=== PATIENT | male | born 1990 | race Caucasian/White ===

== ENCOUNTER 2017-07-11 14:06 | Emergency (ER) | payer SELFPAY ==
[2017-07-11] MEDS ORDERED: SUBLIMAZE IV ONE (15:19)
[2017-07-11] MEDS ORDERED: ZOFRAN IV ONE (15:19)
[2017-07-11] MEDS ORDERED: KEPPRA 1,000 MG/NS 0.75% 100ML 1,000 MG/100 ML BAG IV ONE (15:20)
--- NOTE | 2017-07-11 15:24 | Emergency Department Report ---
ED Seizure HPI - General Chief Complaint: Seizure Stated Complaint: CONVULSIONS/EYE LAC Time Seen by Provider: 07/11/17 15:19 Source: patient, EMS Mode of arrival: Stretcher Limitations: No Limitations - History of Present Illness Initial Comments: Patient is 27-year-old male with remote history of seizure and recently admitted to [facility] for suicidal ideation. Had patient brought to the ER for evaluation of this one single episode of seizure that happened while patient was standing at the nursing desk. A witness described a tonic clonic seizure with eyes rolling back. Patient was post ictal initially he received 2 mg of Ativan IM by EMS. Patient is awake alert oriented 3 now he stated that he had history of seizure before he was in [facility] for that but he recently saw a neurologist who did an EGD, MRI and he was told that he does not have seizure. Patient denied any headache, focal weakness numbness or tingling sensation. Patient is complaining of left shoulder pain and possible dislocation. Patient also sustained a left eyebrow laceration. Patient denied any fever, nausea or vomiting. MD Complaint: seizure -: Sudden Description of Episode: loss of consciousness, tonic-clonic movement, post- event confusion Witnessed:: Yes Trauma: Yes (left shoulder, left eyebrow laceration) Seizure History: known seizure disorder Place: other (psychiatric facility) Possible Precipitating Event: none Associated Symptoms: denies other symptoms - Related Data Home Medications Medication Instructions Recorded Confirmed Last Taken Olanzapine [Zyprexa] 5 mg PO QHS 07/11/17 07/11/17 Unknown Omeprazole Magnesium [PriLOSEC Otc] 40 mg PO QAM 07/11/17 07/11/17 Unknown buPROPion [Wellbutrin] 100 mg PO DAILY 07/11/17 07/11/17 Unknown clonazePAM [Klonopin] 0.5 mg PO DAILY 07/11/17 07/11/17 Unknown hydrOXYzine PAMOATE [Vistaril] 25 mg PO Q8H 07/11/17 07/11/17 Unknown Previous Rx's Medication Instructions Recorded Last Taken Type Ondansetron [Zofran Odt] 4 mg PO Q8HR PRN #14 tab.rapdis 07/11/17 Unknown Rx levETIRAcetam [Keppra TAB] 500 mg PO BID #60 tablet 07/11/17 Unknown Rx traMADol [Ultram 50 MG tab] 50 mg PO Q4HR PRN #14 tablet 07/11/17 Unknown Rx Allergies Allergy/AdvReac Type Severity Reaction Status Date / Time No Known Allergies Allergy Unverified 07/11/17 15:00 ED Review of Systems ROS: Stated complaint: CONVULSIONS/EYE LAC Other details as noted in HPI Comment: All other systems reviewed and negative Constitutional: denies: chills, fever Respiratory: denies: cough, orthopnea, shortness of breath, SOB with exertion, SOB at rest Cardiovascular: denies: chest pain, palpitations, dyspnea on exertion Gastrointestinal: denies: abdominal pain, nausea, vomiting, diarrhea, constipation, hematemesis, melena, hematochezia Genitourinary: denies: urgency, dysuria, frequency, hematuria, discharge, testicular pain, testicular mass Skin: denies: rash, lesions Neurological: denies: headache, weakness, numbness, paresthesias, confusion, abnormal gait, vertigo Psychiatric: denies: depression, auditory hallucinations, visual hallucinations , homicidal thoughts, suicidal thoughts ED Past Medical Hx - Past Medical History Previous Medical History?: Yes Hx Psychiatric Treatment: Yes (SI, ADHD, bipolar, depression) - Social History Smoking Status: Never Smoker Substance Use Type: None - Medications Home Medications: Home Medications Medication Instructions Recorded Confirmed Last Taken Type Olanzapine [Zyprexa] 5 mg PO QHS 07/11/17 07/11/17 Unknown History Omeprazole Magnesium [PriLOSEC Otc] 40 mg PO QAM 07/11/17 07/11/17 Unknown History Ondansetron [Zofran Odt] 4 mg PO Q8HR PRN #14 tab.rapdis 07/11/17 Unknown Rx buPROPion [Wellbutrin] 100 mg PO DAILY 07/11/17 07/11/17 Unknown History clonazePAM [Klonopin] 0.5 mg PO DAILY 07/11/17 07/11/17 Unknown History hydrOXYzine PAMOATE [Vistaril] 25 mg PO Q8H 07/11/17 07/11/17 Unknown History levETIRAcetam [Keppra TAB] 500 mg PO BID #60 tablet 07/11/17 Unknown Rx traMADol [Ultram 50 MG tab] 50 mg PO Q4HR PRN #14 tablet 06/04/18 Unknown Rx ED Physical Exam - General Limitations: No Limitations General appearance: alert, in no apparent distress - Head Head exam: Present: other (1 cm laceration above left eyebrow) - Eye Eye exam: Present: PERRL - ENT ENT exam: Present: normal exam, normal orophraynx, mucous membranes moist - Neck Neck exam: Present: normal inspection, full ROM. Absent: tenderness, meningismus, lymphadenopathy, thyromegaly - Respiratory Respiratory exam: Present: normal lung sounds bilaterally - Cardiovascular Cardiovascular Exam: Present: regular rate, normal rhythm, normal heart sounds - GI/Abdominal GI/Abdominal exam: Present: soft, normal bowel sounds. Absent: distended, tenderness, guarding, rebound, rigid, organomegaly, mass, bruit, pulsatile mass , hernia - Extremities Exam Extremities exam: Present: tenderness. Absent: full ROM (left shoulder with decreased range of motion and tenderness to palpation.) - Back Exam Back exam: Present: normal inspection, full ROM. Absent: tenderness, CVA tenderness (R), CVA tenderness (L), muscle spasm, paraspinal tenderness, vertebral tenderness, rash noted - Neurological Exam Neurological exam: Present: alert, oriented X3, CN II-XII intact, normal gait - Skin Skin exam: Present: warm, intact, normal color ED Course Vital Signs 07/11/17 07/11/17 07/11/17 15:00 15:25 15:44 Temperature 98.6 F Pulse Rate 108 H 100 H Respiratory 16 19 20 Rate Blood Pressure 141/83 Blood Pressure 133/95 [Right] O2 Sat by Pulse 99 99 99 Oximetry - Laceration /Wound Repair Face Wound Location: face Wound Length (cm): 1 Wound's Depth, Shape: linear Wound Explored: clean Irrigated w/ Saline (ccs): 5 Betadine Prep?: Yes Wound Repaired With: Dermabond ED Medical Decision Making - Lab Data Result diagrams: 07/11/17 15:12 07/11/17 15:12 - Radiology Data Radiology results: report reviewed Referring Physician: KWABENA MARTINEZ Patient Name: MARY BETH WATERS Date of : 1990 Sex: Male Report Date: 2017-07-11 Report Status: Finalized Findings [facility] [address] [place] [address] XRay Report Signed Patient: MARY BETH WATERS MR#: [id number] : 1990 Acct:[id number] Age/Sex: 27 / M ADM Date: 07/11/17 Loc: ED Attending Dr: Ordering Physician: KWABENA MARTINEZ Date of Service: 07/11/17 Procedure(s): XR shoulder 2+V LT Accession Number(s): [id number] cc: KWABENA MARTINEZ Fluoro Time In Minutes: FINAL REPORT PROCEDURE: XR SHOULDER 2+V LT TECHNIQUE: Left shoulder, four views HISTORY: pain after fall COMPARISON: No prior studies are available for comparison. FINDINGS: There is a displaced fracture of the distal clavicle shaft, 12 millimeters proximal to the AC joint. Proximal clavicle is displaced superiorly by 13 millimeters. The acromioclavicular and glenohumeral joints appear intact. No acute fracture of the proximal humerus is identified. IMPRESSION: Displaced fracture of the distal left clavicle shaft Transcribed By: [facility] Dictated By: MELE DALY M.D. Electronically Authenticated By: MELE DALY M.D. Signed Date/Time: 07/11/171738 DD/ 38 TD/TT: 07/11/171738 Critical care attestation.: If time is entered above; I have spent that time in minutes in the direct care of this critically ill patient, excluding procedure time. ED Disposition Clinical Impression: Seizure, Laceration of eyebrow, left, Closed left clavicular fracture Disposition: [id number]/TX-[id number] PSY HOSP/PSY UNIT Is pt being admited?: No Condition: Stable Instructions: Clavicle Fracture (ED), Laceration (ED), Recurrent Seizures Adult (ED) Prescriptions: levETIRAcetam [Keppra TAB] 500 mg PO BID #60 tablet Ondansetron [Zofran Odt] 4 mg PO Q8HR PRN #14 tab.rapdis PRN Reason: Nausea And Vomiting traMADol [Ultram 50 MG tab] 50 mg PO Q4HR PRN #14 tablet PRN Reason: Pain Referrals: PRIMARY CARE, [Primary Care Provider] - 3-5 Days DONNELL BIRD MD [Staff Physician] - 3-5 Days
[2017-07-11] MEDS ORDERED: SUBLIMAZE ONE (15:29)
[2017-07-11 15:34] LABS: Hematocrit 39.2 % (35.5-45.6); Hemoglobin 13.2 gm/dl (11.8-15.2); Mean Corpuscular HGB Conc 34 % (32-34); Mean Corpuscular Hemoglobin 29 pg (28-32); Mean Corpuscular Volume 86 fl (84-94); Platelet Count 349 K/mm3 (140-440); Red Blood Count 4.58 M/mm3 (3.65-5.03); Red Cell Distribution Width 15.9 % (13.2-15.2)
[2017-07-11 16:06] LABS: BUN/Creatinine Ratio 17; Blood Urea Nitrogen 12 mg/dL (9-20); Calcium 9.4 mg/dL (8.4-10.2); Hemolysis Index 144
[2017-07-11] MEDS ORDERED: TORADOL IV ONE (16:14)
[2017-07-11 16:23] LABS: Alanine Aminotransferase 20 units/L (7-56); Albumin 4.4 g/dL (3.9-5)
[2017-07-11 16:34] LABS: Bilirubin,Direct < 0.2 mg/dL (0-0.2)
--- NOTE | 2017-07-11 17:43 | XRay Report ---
FINAL REPORT PROCEDURE: XR SHOULDER 2+V LT TECHNIQUE: Left shoulder, four views HISTORY: pain after fall COMPARISON: No prior studies are available for comparison. FINDINGS: There is a displaced fracture of the distal clavicle shaft, 12 millimeters proximal to the AC joint. Proximal clavicle is displaced superiorly by 13 millimeters. The acromioclavicular and glenohumeral joints appear intact. No acute fracture of the proximal humerus is identified. IMPRESSION: Displaced fracture of the distal left clavicle shaft
[2017-07-11 19:03] VITALS: BP 126/83
== END 2017-07-11 19:20 ==
LOC: ED 14:06
DX: S01.112A Laceration without foreign body of left eyelid and periocular area, initial encounter (principal); S42.002A Fracture of unspecified part of left clavicle, initial encounter for closed fracture; F31.9 Bipolar disorder, unspecified; G40.909 Epilepsy, unspecified, not intractable, without status epilepticus; X58.XXXA Exposure to other specified factors, initial encounter; Y93.89 Activity, other specified; Y92.89 Other specified places as the place of occurrence of the external cause; Y99.8 Other external cause status
CPT/HCPCS: 12011; 36415; 73030; 80048; 80074; 85027; 96365; 96375; 99285; J1885; J1953; J2405; J3010